=== PATIENT | male | born 1995 | race Two or more races ===

== ENCOUNTER 2018-11-07 15:47 | Emergency (ER) | payer OTHER ==
[~2018-11-07] VITALS: Ht 172.7 cm; Wt 86.2 kg
== END 2018-11-07 17:21 | disposition home or self-care (01) ==
LOC: ER 15:47
DX: S61.222A Laceration with foreign body of right middle finger without damage to nail, initial encounter (principal); W25.XXXA Contact with sharp glass, initial encounter; Y93.89 Activity, other specified; Y92.69 Other specified industrial and construction area as the place of occurrence of the external cause; Y99.8 Other external cause status